=== PATIENT | male | born 1955 | race Caucasian/White ===

== ENCOUNTER 2020-09-21 11:07 | Inpatient (IN) | payer MEDICARE, OTHER ==
[~2020-09-21] VITALS: Ht 172.7 cm; Wt 80.3 kg
[~2020-09-21 11:07] MED LIST: ALLO300T PO; ATOR40TA78 PO; FENTANYL PF 250 MCG/5ML ONE; MIDAZOLAM 1 MG/ML, 2ML ONE
[2020-09-21] MEDS ORDERED: CHLORHEXIDINE 15 ML UDC ONE (11:25)
[2020-09-21] MEDS ORDERED: CHLORHEXIDINE 15 ML UDC PO ONE (11:30)
[2020-09-21] MEDS ORDERED: LACTATED RINGERS 1,000 ML IV SCH (11:30)
[2020-09-21] MEDS ORDERED: BUPIVACAINE/PF 0.25% ONE (12:52)
[2020-09-21] MEDS ORDERED: EPINEPHRINE 1 MG/ML, 1ML ONE (12:52)
[2020-09-21] MEDS ORDERED: OPIUM/BELLADONNA SUPP.RECT 16.2-60 MG ONE (13:21)
[2020-09-21] MEDS ORDERED: hydrALAzine 20 MG/ML, 1ML IV PRN (13:30)
[2020-09-21] MEDS ORDERED: FENTANYL PF 100 MCG/2ML IV PRN (13:30)
[2020-09-21] MEDS ORDERED: HYDROmorphone 1 MG/ML, 1ML INJ IVPush PRN (13:30)
[2020-09-21] MEDS ORDERED: LABETALOL 5MG/ML, 20ML IV PRN (13:30)
[2020-09-21] MEDS ORDERED: PROMETHAZINE 25 MG/ML, 1ML IVPush PRN (13:30)
[2020-09-21] MEDS ORDERED: ONDANSETRON 2MG/ML, 2ML IVPush PRN (13:30)
[2020-09-21] MEDS ORDERED: LORazepam 2 MG/ML, 1ML IVPush PRN (13:30)
[2020-09-21] MEDS ORDERED: MEPERIDINE/PF 25MG/0.5ML IVPush PRN (13:30)
[2020-09-21] MEDS ORDERED: ACETAMINOPHEN 325 MG TABLET PO PRN (13:30)
[2020-09-21] MEDS ORDERED: OXYcodone 5 MG/5 ML ORAL.SOL UDC PO PRN (13:30)
[2020-09-21] MEDS ORDERED: METHOCARBAMOL 1,000 MG in DEXTROSE 5% 100 ML IV PRN (13:30)
[2020-09-21] MEDS ORDERED: FENTANYL PF 250 MCG/5ML ONE (16:59)
[2020-09-21] MEDS ORDERED: OPIUM/BELLADONNA SUPP.RECT 16.2-60 MG PR PRN (19:30)
[2020-09-21] MEDS ORDERED: OXYcodone IR 5MG TABLET PO PRN (19:30)
[2020-09-21] MEDS ORDERED: ONDANSETRON 2MG/ML, 2ML IV PRN (19:30)
[2020-09-21 19:54] VITALS: BP 131/80
[2020-09-21] MEDS: ACETAMINOPHEN 500 MG TABLET PO SCH (20:11)
[2020-09-21] MEDS: D5%-0.45NACL+KCL 20MEQ 1,000 ML IV SCH (20:11)
[2020-09-22 00:36] VITALS: BP 142/86
[2020-09-22] MEDS: ACETAMINOPHEN 500 MG TABLET PO SCH ×2 (01:22→08:54)
[2020-09-22] MEDS: D5%-0.45NACL+KCL 20MEQ 1,000 ML IV SCH ×2 (02:31→08:50)
[2020-09-22 04:03] VITALS: BP 146/81
[2020-09-22 05:31] LABS: ANION GAP 4 mmol/L (5-15); CALCIUM 8.1 mg/dL (8.5-10.1); CHLORIDE 108 mmol/L (98-107); CREATININE 1.08 mg/dL (0.7-1.3)
[2020-09-22] MEDS ORDERED: ENOXAPARIN 40 MG/0.4 ML SQ SCH (08:00)
[2020-09-22 08:02] VITALS: BP 138/86
[2020-09-22] MEDS ORDERED: ALLOPURINOL 300 MG TABLET PO SCH (09:00)
== END 2020-09-22 12:00 | disposition home or self-care (01) | DRG 708 ==
LOC: OUT 11:07 → 4NE 18:27 → OUT 21:02
PROVIDERS: ADMIT Urology; ATTEND Urology
PROC: 0VT04ZZ Resection of Prostate, Percutaneous Endoscopic Approach (ICD-10-PCS; 2020-09-21)
PROC: 0VT34ZZ Resection of Bilateral Seminal Vesicles, Percutaneous Endoscopic Approach (ICD-10-PCS; 2020-09-21)
PROC: 8E0W4CZ Robotic Assisted Procedure of Trunk Region, Percutaneous Endoscopic Approach (ICD-10-PCS; principal; 2020-09-21 13:00)
DX: C61 Malignant neoplasm of prostate (principal); Z88.5 Allergy status to narcotic agent
CPT/HCPCS: 36415; 80048; 85014; 85018; 86850; 86900; 88309; C1729; G0378; J0171; J1650; J2250; J3010; J3480; J7120

== ENCOUNTER 2020-09-28 12:00 | Outpatient (CLI) | payer MEDICARE, OTHER ==
[~2020-09-28 12:00] MED LIST changes: -FENTANYL PF 250 MCG/5ML ONE; -MIDAZOLAM 1 MG/ML, 2ML ONE
== END 2020-09-28 23:59 | disposition home or self-care (01) ==
LOC: RAD 12:00
PROVIDERS: ATTEND Urology
DX: C61 Malignant neoplasm of prostate (principal)
CPT/HCPCS: 51600; 74430; Q9958